=== PATIENT | female | born 1960 | race African-American/Black ===

== ENCOUNTER 2018-09-28 17:49 | Emergency (ER) | payer BC ==
[~2018-09-28] VITALS: Ht 165.1 cm; Wt 79.4 kg
[2018-09-28 20:10] LABS: BASOPHIL % 0.3 % (0-2); PLATELET COUNT 274 x10^3mcL (130-400); RED CELL DISTRIBUTION WIDTH 13.9 % (11.5-14.5)
[2018-09-28 20:17] LABS: CALCIUM 9.2 mg/dL (8.5-10.1); CARBON DIOXIDE 27.2 mmol/L (21-32); CHLORIDE SERUM 106 mmol/L (98-107); GFR1 > 60 mL/min; GLUCOSE SERUM 119 mg/dL (74-106); POTASSIUM SERUM 4.4 mmol/L (3.5-5.1); SODIUM SERUM 141 mmol/L (136-145)
[2018-09-28 20:22] LABS: ALBUMIN 3.6 g/dL (3.4-5.0); ALKALINE PHOSPHATASE 116 U/L (46-116); ALT/SGPT 40 U/L (14-59); AST/SGOT 18 U/L (15-37); BILIRUBIN TOTAL 0.3 mg/dL (0.20-1.00); TOTAL PROTEIN, SERUM 7.9 g/dL (6.4-8.2)
[2018-09-29 00:19] VITALS: BP 113/76
== END 2018-09-29 00:19 | disposition home or self-care (01) ==
LOC: ED 17:49
DX: R10.32 Left lower quadrant pain (principal); R30.0 Dysuria; I10 Essential (primary) hypertension; Z88.1 Allergy status to other antibiotic agents; Z88.0 Allergy status to penicillin
CPT/HCPCS: 36415; J1885